=== PATIENT | male | born 1945 | race Caucasian/White ===

== ENCOUNTER 2016-09-04 15:38 | Observation (INO) | payer MEDICARE, OTHER ==
[~2016-09-04] VITALS: Ht 170.2 cm; Wt 82.2 kg
[~2016-09-04 15:38] MED LIST: ALDACTONE50 MG PO; ASMANEX220 MC1 INH; ASPIRIN EC81 MG PO; CORGARD20 MG PO; FEOSOL325 MG PO; GUAIFENESIN200 MG PO; HUMULIN R100 UNIT/1 SQ; K-DUR TAB 20 M20 MEQ PO; LACTULOSE10 GM/15 M PO; LASIX20 MG PO; LIPITOR TAB 2020 MG PO; MILK OF MAGNESI30 ML PO; NADOLOL20 MG PO; NOVOLIN 70100 UNIT/1 SQ; NOVOLIN N100 UNIT/1 SQ; OMEPRAZOLE20 M1 PO; OXYCODONE HCL10 MG PO; PHENERGAN 25 MG25 M1 PO; PLAVIX 75 MG TA75 MG PO; PLETAL 100 MG100 MG PO; PRAVACHOL40 MG PO; PROTONIX40 MG PO; PROVENTIL HFA 61 INH INH; XIFAXAN 550 MG550 MG PO; XIFAXAN550 MG PO
[2016-09-04 16:25] LABS: HEMOGLOBIN 10.3 gm/dl (14.0-17.5); RED BLOOD COUNT 4.27 M/UL (4.20-5.50); WHITE BLOOD COUNT 7.3 K/UL (4.5-11.0)
[2016-09-04 16:44] LABS: BUN/CREATININE RATIO 9 (0-10)
[2016-09-05 04:45] LABS: HEMOGLOBIN 9.5 gm/dl (14.0-17.5); RED BLOOD COUNT 3.95 M/UL (4.20-5.50); WHITE BLOOD COUNT 7.3 K/UL (4.5-11.0)
[2016-09-05 05:16] LABS: BUN/CREATININE RATIO 13 (0-10)
[2017-01-29] MEDS ORDERED: NOVOLOG 10100 UNITS2 SQ (11:12)
[2017-01-29] MEDS ORDERED: DEXAMETHASONE 44 MG PO (11:13)
[2017-01-29] MEDS ORDERED: COMBIVENT0.074 GM/I INH (11:14)
[2017-01-29] MEDS ORDERED: PULMICORT0.25 MG/1 INH (11:14)
[2017-01-29] MEDS ORDERED: SYMBICORT 16010.2 GM INH (11:16)
[2017-01-29] MEDS ORDERED: COMBIVENT INHALE4 GM INH (11:16)
== END 2016-09-05 18:00 | disposition home or self-care (01) ==
LOC: ER1 15:38 → ZEROF 20:32 → MED SURG 4 20:32
PROVIDERS: Student in an Organized Health Care Education/Training Program; ADMIT Internal Medicine
DX: K72.90 Hepatic failure, unspecified without coma (principal); K74.60 Unspecified cirrhosis of liver; I73.9 Peripheral vascular disease, unspecified; I25.10 Atherosclerotic heart disease of native coronary artery without angina pectoris; E11.9 Type 2 diabetes mellitus without complications; I10 Essential (primary) hypertension; E78.5 Hyperlipidemia, unspecified; D50.9 Iron deficiency anemia, unspecified; Z86.19 Personal history of other infectious and parasitic diseases; Z79.82 Long term (current) use of aspirin; Z79.4 Long term (current) use of insulin; Z79.899 Other long term (current) drug therapy; Z87.09 Personal history of other diseases of the respiratory system; Z95.5 Presence of coronary angioplasty implant and graft; Z90.49 Acquired absence of other specified parts of digestive tract; Z87.891 Personal history of nicotine dependence
CPT/HCPCS: 36415; 70450; 71010; 80048; 80053; 82140; 82550; 82553; 82962; 83874; 84484; 85025; 85027; 85610; 85730; 87040; 96374; 99285; G0378; J1940